=== PATIENT | male | born 1945 | race Caucasian/White ===

== ENCOUNTER 2017-01-05 09:18 | Outpatient (CLI) | payer MEDICARE ==
[2017-01-05 12:46] LABS: Cardiac Risk 5.6 (Less than 4.5)
== END 2017-01-05 09:19 | disposition home or self-care (01) ==
LOC: NAVSJIPCSP 09:18
PROVIDERS: ATTEND Internal Medicine
DX: E78.5 Hyperlipidemia, unspecified (principal)
CPT/HCPCS: 36415; 80061

== ENCOUNTER 2017-08-08 13:51 | Emergency (ER) | payer MEDICARE, SELFPAY ==
--- NOTE | 2017-08-08 14:47 | RAD ---
RIGHT LEG 2 VIEWS: Date: 08/08/17 HISTORY: Injury, right leg pain and swelling. FINDINGS/IMPRESSION: The right tibia and fibula are intact. No radiopaque foreign body is identified. POS: H
[2017-08-08] MEDS ORDERED: Cephalexin 250 MG CAP ONE (14:53)
== END 2017-08-08 15:05 | disposition home or self-care (01) ==
LOC: NAV ERS 13:51
DX: S80.811A Abrasion, right lower leg, initial encounter (principal); L03.115 Cellulitis of right lower limb; I10 Essential (primary) hypertension; E78.5 Hyperlipidemia, unspecified; E03.9 Hypothyroidism, unspecified; Z79.899 Other long term (current) drug therapy; Z86.73 Personal history of transient ischemic attack (TIA), and cerebral infarction without residual deficits; Z87.891 Personal history of nicotine dependence; W22.8XXA Striking against or struck by other objects, initial encounter

== ENCOUNTER 2022-10-05 08:35 | Outpatient (CLI) | payer OTHER | END 2022-10-05 08:36 | disposition home or self-care (01) | LOC: NAV CT 08:35 | PROVIDERS: ATTEND Family Medicine | DX: R10.9 Unspecified abdominal pain (principal); N40.0 Benign prostatic hyperplasia without lower urinary tract symptoms | CPT/HCPCS: 74176 ==